=== PATIENT | male | born 1975 | race African-American/Black ===

== ENCOUNTER 2016-05-31 10:47 | Inpatient (IN) | payer OTHER ==
--- NOTE | ~2016-05-31 | HP ---
Unit #: [id number] #: [id number] Patient: RENY CASTANO [id number] [address] [address] [id number] MR#: [id number] NAME: RENY CASTANO ROOM: 227 Age: 40 Sex: M Admission Date: 05/31/2016 : 1975 Attending Physician: Liam Stern M.D. Primary Care Physician: No Primary Care Physician HISTORY AND PHYSICAL CHIEF COMPLAINT Shortness of breath. HISTORY OF PRESENT ILLNESS The patient is a 40-year-old male who presents to [facility] emergency department with the complaint of shortness of breath. He states it has been progressive over four days associated with cough. The cough is associated with productive sputum. He states he has dyspnea on exertion. He denies chest pain. No nausea, vomiting or diarrhea. PAST MEDICAL HISTORY Hypertension, bipolar disorder, anxiety. PAST SURGICAL HISTORY The patient's has had ORIF of left wrist fracture, ORIF of right forearm. He has had bilateral elbow surgeries and left knee surgery. SOCIAL HISTORY The patient states he has had no tobacco for two days. No alcohol for one week. He denies illegal drug use. FAMILY HISTORY Hypertension. ALLERGIES Latex, adhesive. HOME MEDICATIONS 1. Seroquel. 2. Lisinopril. 3. Prazosin. 4. Albuterol. 5. Paliperidone ER 6 mg daily. REVIEW OF SYSTEMS A 10-point review of systems obtained negative except as per HPI. PHYSICAL EXAMINATION GENERAL APPEARANCE: A 40-year-old male in no acute distress who appears stated age. VITAL SIGNS: Temperature 102.8. Pulse 106. Blood pressure 185/98. HEENT: Pupils equally round. Extraocular movements intact. Mucous membranes dry. Unit #: [id number] #: [id number] Patient: RENY CASTANO NECK: Supple. No JVD. No lymphadenopathy. CARDIAC: Regular rate and rhythm. No murmurs, gallops or rubs. LUNGS: Decreased breath sounds bilaterally with crackles in the left base. ABDOMEN: Nontender, nondistended. Positive bowel sounds. EXTREMITIES: No clubbing, cyanosis or edema. They are warm and dry. PSYCHIATRIC: Alert and oriented x3. Affect is appropriate. NEUROLOGIC: Cranial nerves II-XII intact grossly. The patient moves all extremities equally and with purpose. SKIN: No rash, bruise or ulcer. MUSCULOSKELETAL: No muscle or joint pain. No muscle or joint swelling. DIAGNOSTIC STUDIES LABORATORY: Sodium 132. The patient is flu antigen positive. IMAGING: Chest x-ray shows left lower pneumonia. ASSESSMENT AND PLAN 1. Influenza. The patient has been worsening for the past four days and is likely outside the window for Tamiflu. Care is supportive. 2. Pneumonia. The patient's temperature was 102.8. He has been started Rocephin and Zithromax. A chest x-ray has been ordered for the morning. 3. Hypertension. The patient has been continued on home medications. 4. Bipolar disorder. Continue the patient's antipsychotics. 5. Prophylaxis. The patient has been ordered SCDs. Dictated by Liam Stern M.D. ANNA/kath TD: 05/31/2016 11:33 JOB #: [id number] HISTORY AND PHYSICAL Page 1 of 1 X Liam Stern MD X HISTORY AND PHYSICAL
--- NOTE | ~2016-05-31 | CR72 ---
[facility] A Service of [facility] RADIOLOGY TEXT RESULTS PATIENT: RENY CASTANO LOCATION: [facility] : [birth year] UNIT #: [id number] AGE: [address]: Liam Stern MD SEX: M ORDER DR: [id number] [address] [id number] [facility]. [place], [place] [address] [id number] MR#: [id number] Acc #: [id number] NAME: RENY CASTANO : 1975 SEX: M STUDY DATE/TIME: 06/01/2016 4:29 UNIT: [facility] ROOM: [facility] STUDY DESCRIPTION: CR Chest Single View Portable Attending Physician: Liam Stern M.D. Ordering Physician: Liam Stern M.D. Primary Care Physician: No Primary Care Physician MEDICAL IMAGING REPORT This report is preliminary unless electronic signature is present EXAM Portable AP view of the chest COMPARISON May 31, 2016 INDICATIONS 40-year-old male with pneumonia, cough and chest congestion for 4 days. FINDINGS Vague focal opacity previously suspected in the left lung base does not persist on today's exam and may have reflected focal atelectasis or artifact from overlapping structures. There is no evidence of pneumothorax, pleural effusion or pneumonia on the current exam. Normal cardiomediastinal silhouette. IMPRESSION Opacity previously seen in the left lung base yesterday does not appear to persist today and is most consistent with either atelectasis or artifact from overlapping structures on the prior exam. No current evidence of pneumonia, pneumothorax or pleural effusion. Normal cardiomediastinal silhouette. Dictated by... Albino Valladares M.D. THIS IS AN ELECTRONICALLY VERIFIED REPORT Albino Valladares M.D. at 06/04/2016 10:33 AM KANDICE/kath TD: 06/01/2016 19:01 JOB #: [id number] [facility] A Service [facility] RADIOLOGY TEXT RESULTS PATIENT: RENY CASTANO LOCATION: [facility] : 71 UNIT #: [id number] AGE: [address]: Liam Stern MD SEX: M ORDER DR: MEDICAL IMAGING REPORT Page 1 of 1 COPY
[2016-05-31] MEDS ORDERED: NORVASC10 MG PO (10:53)
[2016-05-31] MEDS ORDERED: OMEPRAZOLE20 M2 PO (10:54)
[2016-05-31] MEDS ORDERED: LISINOPRIL20 MG PO (10:54)
[2016-05-31] MEDS ORDERED: PALIPERIDONE ER6 MG PO (10:55)
[2016-05-31] MEDS ORDERED: DIVALPROEX SOD500 M2 PO (10:56)
[2016-05-31] MEDS ORDERED: PRAZOSIN HCL2 MG PO (10:57)
[2016-05-31] MEDS ORDERED: QUETIAPINE FUM200 MG PO (10:59)
[2016-05-31] MEDS ORDERED: IBUPROFEN PO (11:01)
[2016-06-01 05:35] LABS: HEMATOCRIT 42.5 % (38.0-50.0); HEMOGLOBIN 14.6 gm/dL (13.0-16.0); MEAN CELL VOLUME 85.3 FL (83-96); MEAN CORPUSCULAR HEMOGLOBIN 29.2 PG (28-34); MEAN CORPUSCULAR HGB CONC 34.2 g/dL (30-36); MEAN PLATELET VOLUME 10.3 FL (6.5-11.5); RED BLOOD COUNT 4.99 X10e (3.90-5.60); RED CELL DISTRIBUTION WIDTH 14.2 % (11.0-15.5); WHITE BLOOD COUNT 3.9 X10e3 (4.0-10.5)
[2016-06-01 06:18] LABS: BUN/CREATININE RATIO 8.33; CALCIUM SERUM 8.4 mg/dL (8.4-10.2); CREATININE SERUM 2.4 mg/dL (0.6-1.4); GLOM FILT RATE Estimated 37.2 mL/min (>60); POTASSIUM 4.4 mmol/L (3.5-5.1)
[2016-06-01 16:49] LABS: BUN/CREATININE RATIO 11.25; CALCIUM SERUM 8.3 mg/dL (8.4-10.2); CREATININE SERUM 1.6 mg/dL (0.6-1.4); GLOM FILT RATE Estimated 60.7 mL/min (>60); POTASSIUM 4.2 mmol/L (3.5-5.1)
[2016-06-01 16:53] LABS: URINE APPEARANCE CLEAR; URINE BILIRUBIN NEG (NEG); URINE BLOOD NEG (NEG); URINE COLOR YELLOW; URINE GLUCOSE NORM (NEG); URINE KETONE NEG (NEG); URINE LEUKOCYTE ESTERASE NEG (NEG); URINE NITRATE NEG (NEG); URINE PROTEIN 1+ (NEG); URINE UROBILINOGEN NORM (NEG)
[2016-06-01 16:54] LABS: CULTURE INDICATED? NO; URBCS1 AUWI 0-2 /[HPF] (0-2); UWBCS1 AUWI 0-2 (0-5)
[2016-06-01 16:55] LABS: URINE BACTERIA AUWI NEG (NEGATIVE); URINE SQUAMOUS EPITHELIAL CELL FEW /[HPF]
[2016-06-01] MEDS ORDERED: AZITHROMYCIN500 MG PO (18:51)
[2016-06-01] MEDS ORDERED: OMNICEF300 MG PO (19:09)
== END 2016-06-01 19:40 | disposition home or self-care (01) | DRG 194 ==
LOC: C2A 10:47
PROVIDERS: Internal Medicine
DX: J11.00 Influenza due to unidentified influenza virus with unspecified type of pneumonia (principal); N17.9 Acute kidney failure, unspecified; I10 Essential (primary) hypertension; F31.9 Bipolar disorder, unspecified
CPT/HCPCS: 71010; 80048; 81003; 85027; 89190; 94640; 94760; J0456; J0696; J2270